=== PATIENT | female | born 1965 | race Caucasian/White ===

== ENCOUNTER → 2022-03-17 09:53 | Outpatient (CLI) | payer OTHER, SELFPAY ==
--- NOTE | 2022-03-17 | DI.RAD.S_ITS ---
PROCEDURE: XR KNEE LT 3V INDICATIONS: Pain TECHNIQUE: 3 views of the knee were acquired. COMPARISON: None. FINDINGS: Bones: No acute fractures or dislocations. No suspicious bony lesions. Mild joint space narrowing at the medial compartment. Minimal tricompartmental spurring present. Soft tissues: No joint effusion. No suspicious soft tissue calcifications. IMPRESSION: 1. No acute fracture visualized. 2. Mild degenerative changes of the knee. Dictated by: Trevin Garcia M.D. on 03/17/2022 at 12:43 Approved by: Trevin Garcia M.D. on 03/17/2022 at 12:44
--- NOTE | 2022-03-17 | DI.RAD.S_ITS ---
PROCEDURE: XR LUMBAR SPINE 2-3V INDICATIONS: BACK PAIN TECHNIQUE: 3 views of the lumbar spine were acquired. COMPARISON: None. FINDINGS: Bones: It is difficult to determine if there are 5 [id number] lumbar type vertebral bodies with hypoplastic 12th ribs present versus lumbarization of S1. For the purposes of this report, the vertebral body with anterolisthesis over the sacrum described below is referred to as L5 with counting cephalad. No vertebral body compression fractures. No suspicious bony lesions. 13 mm anterolisthesis L5 on S1. Probable pars defects present at this level. Mild disc height loss and endplate spurring present at multiple levels within the lumbar spine. Soft tissues: Overlying bowel gas pattern is normal. Vascular calcifications are present. IMPRESSION: 1. No acute fracture visualized radiographically. 2. Mild-moderate multilevel degenerative changes of the lumbar spine. Anterolisthesis of L5 on S1. Dictated by: Trevin Garcia M.D. on 03/17/2022 at 12:45 Approved by: Trevin Garcia M.D. on 03/17/2022 at 12:55
== END ==
PROVIDERS: Referring Provider Internal Medicine Cardiovascular Disease; Visit Provider Internal Medicine Cardiovascular Disease
DX: M25.569 Pain in unspecified knee (principal); M54.50 Low back pain, unspecified; M43.16 Spondylolisthesis, lumbar region
CPT/HCPCS: 72100; 73562